=== PATIENT | female | born 1965 | race Caucasian/White ===

== ENCOUNTER 2017-08-20 22:36 | Emergency (ER) | payer BC ==
[2017-08-20] MEDS ORDERED: Acetaminophen TAB* 325 MG PO ONE (23:41)
--- NOTE | 2017-08-20 23:49 | ED ---
Adult Trauma - HPI Summary HPI Summary: 52 yo F with hx Hypothyroidism, GERD, depression was at the movies tonight when she slipped on stairs that were wet and states she fell down a "flight" of stairs, perhaps 12 stairs. Pt c/o right parietal pain, neck pain, nausea and right ankle and lower leg pain. Pt was alone at the time it occurred, fall was witnessed, but the witness did not stay to provide more hx. Pt declined ambulance at the scene. Pt is unsure if she lost consciousness but thinks she may have passed out briefly. Awoke fully. No incontinence. Bystanders called pt's (who is a physician) and he brought pt directly to the ED. Pt cannot bear weight on the right foot. Pt takes Effexor, thyroid medication, omeprazole and levocetirizine. 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 - ?: No Mechanism of Injury: Blunt Trauma Ambulatory at the Scene: Yes - but painful Loss of Consciousness: unsure - but thinks brief, seconds Onset/Duration: Started Minutes Ago Onset of Pain: Immediate Onset Severity: Moderate Current Severity: Severe Pain Intensity: 8 Pain Scale Used: 0-10 Numeric Location: Head, Neck, Extremities - right foot and ankel Aggravating Factor(s): Weight Bearing Alleviating Factor(s): Nothing Associated Signs & Symptoms: Positive: Nausea/Vomiting, Other: - headache - Allergy/Home Medications Allergies/Adverse Reactions: Allergies Allergy/AdvReac Type Severity Reaction Status Date / Time No Known Allergies Allergy Verified 08/20/17 23:18 PMH/Surg Hx/FS Hx/Imm Hx Previously Healthy: No Endocrine/Hematology History: Reports: Hx Thyroid Disease GI History: Reports: Hx Gastroesophageal Reflux Disease Psychiatric History: Reports: Hx Depression Infectious Disease History: No Infectious Disease History: Denies: Traveled Outside the [place] in Last 30 Days - Family History Known Family History: Positive: Hypertension - Social History Lives: With Family Alcohol Use: None Hx Substance Use: No Hx Tobacco Use: No Review of Systems Constitutional: Negative Eyes: Negative ENT: Negative Cardiovascular: Negative Respiratory: Negative Positive: Nausea Genitourinary: Negative Positive: Arthralgia - pain right ankle and deformity, can't bear wt Neurological: Other - dizziness Positive: Headache Psychological: Normal All Other Systems Reviewed And Are Negative: Yes Physical Exam Triage Information Reviewed: Yes Vital Signs On Initial Exam: Initial Vitals Temp Pulse Resp BP Pulse Ox 97.0 F 66 16 104/77 98 08/20/17 23:10 08/20/17 23:10 08/20/17 23:10 08/20/17 23:10 08/20/17 23:10 Vital Signs Reviewed: Yes Appearance: Positive: Ill-Appearing, Pain Distress, Obese Skin: Positive: Warm, Skin Color Reflects Adequate Perfusion, Dry, Tender, Other - bruising right medial malleolus Head/Face: Positive: Normal Head/Face Inspection. Negative: TMJ Tenderness, Cephalohematoma Eyes: Positive: EOMI, HARPREET, Conjunctiva Clear ENT: Positive: Normal ENT inspection. Negative: Trismus, Dental tenderness Dental: Negative: Dental Fracture @ Neck: Positive: Supple, No Lymphadenopathy, Tenderness @ - posteriorly Respiratory/Lung Sounds: Positive: Clear to Auscultation, Breath Sounds Present Cardiovascular: Positive: Normal, RRR, S1, S2 Abdomen Description: Positive: Nontender, No Organomegaly, Soft. Negative: CVA Tenderness (R), CVA Tenderness (L), Distended, Guarding, McBurney's Point Tenderness, Peritoneal Signs, Pulsatile Mass, Splenomegaly Bowel Sounds: Positive: Present Musculoskeletal: Positive: Pain @ - right ankle, Other - Achilles intact by palpation and able to dorsiflex and plantar flex, but unable to perform Linn test with pt prone due to pain Neurological: Positive: Sensory/Motor Intact, Alert, Oriented to Person Place, Time, CN Intact II-III, Facial Symmetry, Speech Normal Psychiatric: Positive: Normal - Inez Coma Scale Best Eye Response: 4 - Spontaneous Best Motor Response: 6 - Obeys Commands Best Verbal Response: 5 - Oriented Coma Scale Total: 15 Diagnostics - Vital Signs Vital Signs Temp Pulse Resp BP Pulse Ox 08/20/17 23:10 97.0 F 66 16 104/77 98 - Laboratory Lab Statement: Any lab studies that have been ordered have been reviewed, and results considered in the medical decision making process. - Radiology right ankle Xray Interpretation: Positive (See Comments) - spiral fracture fibula Radiology Interpretation Completed By: ED Physician - CT CT brain CT Interpretation: No Acute Changes CT Interpretation Completed By: Radiologist CT cervical spine CT Interpretation Completed By: Radiologist - Additional Comments Diagnostic Additional Comments: right foot: no fracture noted Re-Evaluation - Re-Evaluation First Eval Re-Evaluation Time: 12:00 Change: Unchanged Comment: pain is controlled, advised of tibia fracture Second Eval Re-Evaluation Time: 01:30 Change: Unchanged Comment: right leg has post splint in place. Pt dizzy when standing for crutch fitting, but resolves readily with sitting down. Pain is controlled. Adult Trauma Course/Dx - Course Course Of Treatment: 52yo F with trauma secondary to mechanical fall down 12 wet stairs tonight. Possible brief LOC. Right ankle pain. Pt had CT brain and C spine both negative. Unofficial reading of ankle xray is spiral fx of tibia, placed in posterior splint by CARLOS ALBERTO Olivares. Pt given crutches. Given Stephens 5/325mg and acetaminophen 650mg for pain and reglan 10mg po for nausea. Also given soft cervical collar for comfort. Pt to F/u with orthopedist in 2 days, PCP for concussion Rx. - Diagnoses Differential Diagnosis/HQI/PQRI: Positive: Abrasion(s), Contusion(s), Fracture, Hematoma(s), Sprain, Strain Provider Diagnoses: Fall (on) (from) other stairs and steps, initial encounter, Fracture closed, fibula, shaft, Concussion Discharge - Sign-Out/Discharge Documenting (check all that apply): Discharge/Admit/Transfer - Discharge Plan Condition: Stable Disposition: HOME Prescriptions: HYDROcodone/ACETAMIN 5-325 MG* [Stephens 5-325 TAB*] 1 tab PO Q4H PRN #18 tab MDD 6 PRN Reason: Pain Metoclopramide TAB* [Reglan TAB*] 10 mg PO Q8H #9 tab Patient Education Materials: Hydrocodone/Acetaminophen (By mouth), Cervical Strain (ED), Leg Fracture (ED), Concussion (ED) Referrals: Cheryle Saha MD [Medical Doctor] - 2 Days (or orthopedist of your choice ) Estrella Mcarthur MD [Primary Care Provider] - 2 Days Additional Instructions: You have a spiral fracture of your right fibula, and you have been placed in a posterior splint, which you should leave in place until seen by an orthopedist. You should use the crutches and be totally non-weight bearing. This is an unofficial reading of your xray. We will contact you if there is a change in the reading. We have also given you a copy of the xray disk that you may show your orthopedist. The CT's of your brain and neck are also unofficial, but there are no acute findings, and no fracture noted. Dr. Pavon has diagnosed you with a concussion. You should follow up with Dr. Mcarthur regarding this. While you were in the ER you were given acetaminophen 650mg, and hydrocodone 5/ 325mg and reglan 10mg orally. You may wear the soft cervical collar for comfort. Return to the ER if you have any new or worsening symptoms. - Billing Disposition and Condition Condition: STABLE Disposition: Home
[2017-08-21] MEDS ORDERED: HYDROcodone/ACETAMIN 5-325 MG* 1 TAB PO ONE (01:18)
[2017-08-21] MEDS ORDERED: Metoclopramide TAB* 10 MG PO ONE (01:29)
--- NOTE | 2017-08-21 01:31 | ED ---
Progress - Progress Note Progress Note: Posterior and sugar tong splint was applied by me on the right lower leg without complication. Neurovasc was intact both prior and after application of splint. Use Ortho-Glass. Discharge - Sign-Out/Discharge Documenting (check all that apply): Discharge/Admit/Transfer - Discharge Plan Condition: Stable Disposition: HOME Referrals: Estrella Mcarthur MD [Primary Care Provider] - - Billing Disposition and Condition Condition: STABLE Disposition: Home
[2017-08-21 02:01] VITALS: BP 127/83
--- NOTE | 2017-08-21 08:56 | RAD ---
INDICATION: Fall. Pain. COMPARISON: None TECHNIQUE: Noncontrast axial source images was performed from the skull base to the thoracic inlet. Coronal and and sagittal reformatted images were generated. FINDINGS: Vertebrae: There is no fracture or acute focal bony lesion. There is degenerative osteoarthritis with bony spur formation from C4 through C7. This most prominent at C6-C7. There is mild facet arthropathy and there is posterior spondylitic ridge formation with uncinate process spurring leading to mild multilevel foraminal narrowing. Alignment: Mild reversal normal cervical lordosis. The atlantodental interval is normal. Central Canal: There are no significant CT abnormalities of the central canal or foramina. MR imaging is a more sensitive method to evaluate the canal and foramina. Intervertebral disc spaces: The disc spaces are maintained. Brain: The visualized brain appears unremarkable. Soft tissues: The visualized soft tissue elements of the neck are unremarkable. The prevertebral soft tissues appear normal. The lung apices are clear. IMPRESSION: MODERATE MIDCERVICAL OSTEOARTHRITIC CHANGES NOTED NO ACUTE FINDINGS
--- NOTE | 2017-08-21 08:57 | RAD ---
INDICATION: Fall. Intracranial injury COMPARISON: None TECHNIQUE: Noncontrast axial source images were acquired from the skull base to the vertex. FINDINGS: Ventricles/sulci: The ventricles and cisterns are normal in size and configuration for age. Brain parenchyma: There is no focal parenchymal finding, evidence of intracranial mass, or intracranial mass effect. Intracranial hemorrhage:None. Extra-axial spaces: There are no abnormal extra axial fluid collections or evidence of extra-axial mass. Calvarium: There is no calvarial fracture or other calvarial abnormality. Scalp: There is no evidence of scalp or extracalvarial soft tissue abnormality. Paranasal sinuses/mastoid: There is a 1 cm mucous retention cyst or polyp in the right maxillary antrum.. Other: None. IMPRESSION: No acute intracranial findings
--- NOTE | 2017-08-21 08:58 | RAD ---
INDICATION: Right foot injury. Fall. COMPARISON: None TECHNIQUE: AP, lateral, and oblique views were obtained. FINDINGS: There is minor first MTP joint osteoarthritis with a mild hallux valgus deformity. No acute bony findings about the foot are identified. The soft tissues are intact. IMPRESSION: NO ACUTE FRACTURE ABOUT THE FOOT. PLEASE REFER ALSO TO ANKLE REPORT.
--- NOTE | 2017-08-21 09:00 | RAD ---
INDICATION: Right ankle injury COMPARISON: Right foot same date TECHNIQUE: AP, lateral, and oblique views were obtained. FINDINGS: There is an oblique fracture the distal fibular metadiaphysis with comminution. The fracture is not significantly displaced. There are small avulsed fragment from the medial malleolus which are age indeterminant. The ankle mortise is intact. There is lateral soft tissue swelling. IMPRESSION: ACUTE FIBULAR FRACTURE. AGE-INDETERMINATE MEDIAL MALLEOLAR AVULSION FRACTURES.
== END 2017-08-21 01:50 | disposition home or self-care (01) ==
LOC: ED 22:36
DX: S82.401A Unspecified fracture of shaft of right fibula, initial encounter for closed fracture (principal); R11.2 Nausea with vomiting, unspecified; S06.0X1A Concussion with loss of consciousness of 30 minutes or less, initial encounter; W10.9XXA Fall (on) (from) unspecified stairs and steps, initial encounter; Y92.9 Unspecified place or not applicable; R42 Dizziness and giddiness; Z87.19 Personal history of other diseases of the digestive system
CPT/HCPCS: 70450; 72125; 99282; A9270-GY